=== PATIENT | female | born 1975 | race Caucasian/White ===

== ENCOUNTER 2020-12-24 19:17 | Emergency (ER) | payer OTHER ==
[2020-12-24 19:45] VITALS: BMI 19.7
[2020-12-24 21:34] LABS: BASO % 0.6 % (0-2.0); EOS % 1.1 % (0-4.5); LYMPH % 13.5 % (8-40); MCH 24.4 pg (25.7-33.7); MCHC 31.1 g/dl (32.0-36.0); MEAN CELL VOLUME 78.6 fl (80-96); MEAN PLT VOLUME 8.7 fl (7.5-11.1); MONO % 10.7 % (3.8-10.2); NEUT % 74.1 % (42.8-82.8); PLATELET COUNT 361 K/MM3 (134-434); RDW 17.2 % (11.6-15.6); WHITE BLOOD COUNT 7.8 K/mm3 (4.0-10.0)
[2020-12-24 21:37] LABS: HEMOGLOBIN 6.8 GM/dL (10.7-15.3)
[2020-12-24 21:44] LABS: INR 0.93 (0.83-1.09); PROTHROMBIN TIME (PATIENT) 11.5 SEC (9.7-13.0)
[2020-12-24 21:47] LABS: ACTIVATED PTT 31.6 SECONDS (25.2-36.5)
[2020-12-24 21:49] LABS: CALCIUM 8.5 mg/dL (8.5-10.1)
[2020-12-24 21:50] LABS: ALBUMIN 3.6 g/dl (3.4-5.0); BLOOD UREA NITROGEN 10.2 mg/dL (7-18); MAGNESIUM 2.1 mg/dL (1.8-2.4)
[2020-12-24 21:53] LABS: CREATININE 0.6 mg/dL (0.55-1.3)
[2020-12-24 21:54] LABS: BILIRUBIN,TOTAL 0.1 mg/dL (0.2-1)
[2020-12-24 21:55] LABS: TOT PROT 6.9 g/dl (6.4-8.2)
[2020-12-25 02:52] VITALS: TEMP 98.6
[2020-12-25 05:16] VITALS: BP 126/84; PULSE 81
== END 2020-12-25 06:57 | disposition home or self-care (01) ==
LOC: JER 19:17
DX: D64.9 Anemia, unspecified (principal)
CPT/HCPCS: 36415; 36430; 80053; 83735; 84703; 85025; 85610; 85730; 86850; 86900; 86901; 86922; 93005; 93010; 99285-25; P9058